=== PATIENT | male | born 1955 | race Caucasian/White ===

== ENCOUNTER 2017-03-06 19:11 | Emergency (ER) | payer OTHER | END 2017-03-06 22:20 | disposition home or self-care (01) | LOC: FER 19:11 | DX: S80.02XA Contusion of left knee, initial encounter (principal); I10 Essential (primary) hypertension; I65.29 Occlusion and stenosis of unspecified carotid artery; E78.5 Hyperlipidemia, unspecified; Z79.82 Long term (current) use of aspirin; Z79.899 Other long term (current) drug therapy; Z98.890 Other specified postprocedural states; W19.XXXA Unspecified fall, initial encounter | CPT/HCPCS: 93971 ==

== ENCOUNTER 2021-01-29 10:16 | Emergency (ER) | payer OTHER ==
[~2021-01-29 10:16] MED LIST: ASPIRIN EC81 MG PO; EYE VITAMIN PO; LIPITOR20 MG PO; NORVASC5 MG PO; ZESTORETIC 20-1 EAC1 PO
[2021-01-29 11:17] LABS: BASOPHIL 0.6 % (0-2); EOSINOPHIL 1.3 % (0-7); HCT 46.5 % (42.0-52.0); HGB 15.6 g/dl (13.2-18.0); LYMPHOCYTE 23.1 % (15-48); MCHC 33.5 g/dL (32.0-36.0); MCV 89.4 fL (78.0-100.0); MONOCYTE 7.8 % (0-12); NEUTROPHIL 66.9 % (41-80); NRBC 0; PLT 232 K/uL (150-400); RDW 13.1 % (11.5-14.0); WBC 6.9 K/uL (4.0-10.5)
[2021-01-29 12:10] LABS: ALBUMIN 3.9 g/dL (3.4-5.0); BILIRUBIN - TOTAL 0.9 mg/dL (0.2-1.0); BUN/CREAT RATIO (CALC) 18.6 RATIO; CREATININE 0.7 mg/dL (0.67-1.17); GLOBULIN (CALCULATION) 3.9 g/dL; POTASSIUM 4.1 mmol/L (3.5-5.1); TOTAL PROTEIN 7.8 g/dL (6.4-8.2)
== END 2021-01-29 14:32 | disposition home or self-care (01) ==
LOC: FER 10:16
PROVIDERS: Emergency Medicine
DX: R42 Dizziness and giddiness (principal); I10 Essential (primary) hypertension; Z95.1 Presence of aortocoronary bypass graft; Z87.891 Personal history of nicotine dependence
CPT/HCPCS: 36415; 70450; 80053; 84484; 85025; 93005